=== PATIENT | female | born 1990 | race Caucasian/White ===

== ENCOUNTER 2016-08-09 15:27 | Emergency (ER) | payer OTHER ==
[2016-08-09 15:32] VITALS: RESP 16; TEMP 98.2
--- NOTE | 2016-08-09 16:01 | CPEKG ---
Heart Rate: 55 RR Interval: 1091 P-R Interval: 156 QRSD Interval: 84 QT Interval: 424 QTC Interval: 406 P [place]: 48 QRS [place]: 16 T Wave [place]: 27 EKG Severity - OTHERWISE NORMAL ECG - EKG Impression: SINUS ARRHYTHMIA, RATE 47-65 Electronically Signed By: Kevin Reinoso 09-Aug-2016 17:33:45
--- NOTE | 2016-08-09 16:17 | EDPHY ---
H & P Stated Complaint: Increased left arm/chest pain. Time Seen by Provider: 08/09/16 15:45 HPI/ROS: CHIEF COMPLAINT: Chronic chest pain and arm pain HISTORY OF PRESENT ILLNESS: The patient has a history of Graves disease. She is currently under the care of a new steel burner at the [facility]. The patient has constant daily left arm pain with intermittent left chest pain since June. 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 She is currently maintained only on methimazole. The patient denies pleuritic chest pain. She denies asymmetric calf pain or swelling. The patient's chest pain and arm pain is reproducible. REVIEW OF SYSTEMS: A comprehensive 10 point review of systems is otherwise negative aside from elements mentioned in the history of present illness. Source: Patient Exam Limitations: No limitations - Personal History LMP (Females 10-55): 8-14 Days Ago Current Tetanus Diphtheria and Acellular Pertussis (TDAP): Yes Tetanus Vaccine Date: < 10 YEARS - Medical/Surgical History Hx Asthma: No Hx Chronic Respiratory Disease: No Hx Diabetes: No Hx Cardiac Disease: No Hx Renal Disease: No Hx Cirrhosis: No Hx Alcoholism: No Hx HIV/AIDS: No Hx Splenectomy or Spleen Trauma: No Other PMH: hx tachycardia, Grave's disease, eye surgery - Social History Smoking Status: Former smoker Alcohol Use: Occasionally Drug Use: None - Physical Exam Exam: General Appearance: Alert, no distress Eyes: Mild exophthalmos ENT, Mouth: Mucous membranes moist Respiratory: There are no retractions, lungs are clear to auscultation Cardiovascular: Regular rate and rhythm Gastrointestinal: Abdomen is soft and nontender, no masses, bowel sounds normal Neurological: A&O, normal motor function, normal sensory exam, normal cranial nerves Skin: Warm and dry, no rashes Musculoskeletal: Neck is supple nontender Extremities: symmetrical, full range of motion Constitutional: Initial Vital Signs Temperature (C) 36.8 C 08/09/16 15:28 Heart Rate 72 08/09/16 15:28 Respiratory Rate 16 08/09/16 15:28 Blood Pressure 118/75 08/09/16 15:28 O2 Sat (%) 96 08/09/16 15:28 O2 Delivery Mode Room Air Allergies/Adverse Reactions: diphenhydramine HCl [From Benadryl] Allergy (Verified 12/05/16 15:47) Home Medications: Medication Instructions Recorded Potassium Med For Acne 07/09/16 Thyroid Med 07/09/16 Medical Decision Making - Diagnostics EKG Interpretation: EKG: Complete interpretation has been separately recorded in the [employer] archive. Summary impression: Sinus rhythm, rate 55 ED Course/Re-evaluation: The patient's EKG, serum chemistries, troponin are all within normal limits. I do not feel that this chest pain and arm pain is secondary to acute coronary syndrome. I do feel the patient can continue to work with her primary care provider for evaluation of the symptoms. Differential Diagnosis: Differential diagnosis considered includes pericarditis, acute coronary syndrome , myofascial strain, peripheral neuropathy - Data Points Laboratory Results: Laboratory Results 08/09/16 16:20 08/09/16 16:20 08/09/16 16:20 WBC 8.27 10^3/uL (3.80-9.50) RBC 5.01 10^6/uL (4.18-5.33) Hgb 14.0 g/dL (12.6-16.3) Hct 41.7 % (38.0-47.0) MCV 83.2 fL (81.5-99.8) MCH 27.9 pg (27.9-34.1) MCHC 33.6 g/dL (32.4-36.7) RDW 13.6 % (11.5-15.2) Plt Count 238 10^3/uL (150-400) MPV 10.6 fL (8.7-11.7) Neut % (Auto) 57.8 % (39.3-74.2) Lymph % (Auto) 35.4 % (15.0-45.0) [place] % (Auto) 6.4 % (4.5-13.0) Eos % (Auto) 0.1 L % (0.6-7.6) Baso % (Auto) 0.1 L % (0.3-1.7) Nucleat RBC Rel Count 0.0 % (0.0-0.2) Absolute Neuts (auto) 4.77 10^3/uL (1.70-6.50) Absolute Lymphs (auto) 2.93 10^3/uL (1.00-3.00) Absolute Monos (auto) 0.53 10^3/uL (0.30-0.80) Absolute Eos (auto) 0.01 L 10^3/uL (0.03-0.40) Absolute Basos (auto) 0.01 L 10^3/uL (0.02-0.10) Absolute Nucleated RBC 0.00 10^3/uL (0-0.01) Immature Gran % 0.2 % (0.0-1.1) Immature Gran # 0.02 10^3/uL (0.00-0.10) Sodium 139 mEq/L (134-144) Potassium 4.6 mEq/L (3.5-5.2) Chloride 104 mEq/L (97-110) Carbon Dioxide 25 mEq/l (22-31) Anion Gap 10 mEq/L (8-16) BUN 12 mg/dL (7-23) Creatinine 0.7 mg/dL (0.6-1.0) Estimated GFR > 60 Glucose 77 mg/dL (70-100) Calcium 9.5 mg/dL (8.5-10.4) Troponin I < 0.012 ng/mL (0-0.034) Beta HCG, Qual NEGATIVE Departure - Departure Disposition: Home, Routine, Self-Care Clinical Impression: Chest wall pain, Chronic upper extremity pain Condition: Good Instructions: Chest Wall Pain (ED) Additional Instructions: 1. Please continue to work with your primary care provider for further evaluation of your symptoms. I see no evidence of a heart attack and I doubt that you are experiencing angina as the etiology of your pain. 2. I do recommend following up with our on-call termite control service representative, Dr. Clarissa Arnold, if you continue to have any ongoing symptoms for further cardiac evaluation. 3. It may be helpful to follow up with a neurologist for evaluation of of your chronic upper extremity pain. You have been given the contact number of Dr. Andrey Melchor our on-call neurologist Referrals: Clarissa Arnold MD [Medical Doctor] - As per Instructions Andrey Melchor DO [Medical Doctor] - As per Instructions
[2016-08-09 16:29] LABS: % IMMATURE GRANULYOCYTES 0.2 % (0.0-1.1); ABSOLUTE IMMATURE GRANULOCYTES 0.02 10^3/uL (0.00-0.10); ADD DIFF? NO; ADD MORPH? NO; ADD SCAN? NO; ATYPICAL LYMPHOCYTE FLAG 40 (0-99); FRAGMENT RBC FLAG 0 (0-99); HEMATOCRIT 41.7 % (38.0-47.0); LEFT SHIFT FLG 0 (0-99); LIPEMIA HEMOLYSIS FLAG 80 (0-99); MEAN CELL HEMOGLOBIN 27.9 pg (27.9-34.1); MEAN CELL HEMOGLOBIN CONCENTR. 33.6 g/dL (32.4-36.7); MEAN CELL VOLUME 83.2 fL (81.5-99.8); MEAN PLATELET VOLUME 10.6 fL (8.7-11.7); PLATELET CLUMPS FLAG 0 (0-99); PLATELET COUNT 238 10^3/uL (150-400); RED BLOOD CELL COUNT 5.01 10^6/uL (4.18-5.33); RED CELL DISTRIBUTION WIDTH 13.6 % (11.5-15.2)
[2016-08-09 16:43] LABS: ANION GAP 10 mEq/L (8-16); CALCIUM 9.5 mg/dL (8.5-10.4); CARBON DIOXIDE 25 mEq/l (22-31); CHLORIDE 104 mEq/L (97-110); CREATININE 0.7 mg/dL (0.6-1.0); GLOMERULAR FILTRATION RATE > 60; GLUCOSE 77 mg/dL (70-100); POTASSIUM 4.6 mEq/L (3.5-5.2); SODIUM 139 mEq/L (134-144)
[2016-08-09 16:56] LABS: TROPONIN I < 0.012 ng/mL (0-0.034)
[2016-08-09 17:28] VITALS: BP 104/68; PULSE 63; O2SAT 95
== END 2016-08-09 17:28 | disposition home or self-care (01) ==
DX: M79.602 Pain in left arm (principal); R07.89 Other chest pain; G89.29 Other chronic pain; Z87.891 Personal history of nicotine dependence

== ENCOUNTER → 2017-01-17 | Outpatient (CLI) | payer OTHER | LOC: FIMAGING 10:46 | PROVIDERS: ATTEND Physician Assistant | DX: N63 Unspecified lump in breast (principal) ==